=== PATIENT | male | born 1940 | race Caucasian/White ===

== ENCOUNTER 2017-06-15 15:01 | Inpatient (IN) | payer MEDICARE ==
[~2017-06-15] VITALS: Ht 188 cm; Wt 64.9 kg
[~2017-06-15 15:01] MED LIST: ACET-1600 PO; AMOX1TAB61 PO; CHOL10002 PO; DILT180C53 PO; FLUT1AER INH; GLYC1TAB PO; HYDR25TA11 PO; IPRA3AMP INH; IPRA4AER INH; MULT-516 PO; PIPE3.375 IVPB
[2017-06-15] MEDS ORDERED: SODIUM CHLORIDE 0.9% 1,000 ML IV ONE (15:21)
[2017-06-15] MEDS ORDERED: SODIUM CHLORIDE FLUSH 10ML SYR IVF ONE (15:30)
[2017-06-15] MEDS ORDERED: CEFTRIAXONE PMX 1GM/50ML 50 ML IVPB ONE (15:30)
[2017-06-15] MEDS ORDERED: SODIUM CHLORIDE 0.9% 1,000ML IVBOLUS ONE (15:30)
[2017-06-15] MEDS ORDERED: CEFTRIAXONE PMX 1GM/50ML 50 ML ONE (15:47)
[2017-06-15 15:58] LABS: BLOOD UREA NITROGEN 10 mg/dL (7-18)
[2017-06-15 16:03] LABS: ASPARTATE AMINO TRANSFERASE 17 U/L (15-37)
[2017-06-15 16:05] LABS: ABG COLLECTION SITE RIGHT RADIAL
[2017-06-15 16:05] LABS: IS PT STATUS REG ER OR PRE ER? YES
[2017-06-15 16:06] LABS: COLLATERAL CIRCULATION TESTING NORMAL
[2017-06-15 16:23] LABS: HEMATOCRIT 47.9 % (39.2-51.8); HEMOGLOBIN 16.3 g/dL (13.7-18.0); WHITE BLOOD COUNT 13.6 x10^3/uL (3.4-10)
[2017-06-15 16:24] LABS: DIFF TOTAL CELLS COUNTED 100 CELL DIFF
[2017-06-15 16:27] LABS: VERIFY COUNTS? YES
[2017-06-15] MEDS ORDERED: PROP10TA PO (16:27)
[2017-06-15] MEDS ORDERED: BUDE10.2 IH (16:27)
[2017-06-15] MEDS ORDERED: GABA100C PO (16:27)
[2017-06-15] MEDS ORDERED: DIAZ10TA PO (16:27)
[2017-06-15 16:28] LABS: ANISOCYTOSIS 1+
[2017-06-15] MEDS ORDERED: OMNIPAQUE 350 MG/ML, 100ML BOTTLE ONE (18:17)
[2017-06-15] MEDS ORDERED: ACETAMINOPHEN 325 MG TABLET PO PRN (19:00)
[2017-06-15] MEDS ORDERED: OXYcodone IR 5MG TABLET PO PRN (19:00)
[2017-06-15] MEDS ORDERED: ONDANSETRON 2MG/ML, 2ML IVPush PRN (19:00)
[2017-06-15] MEDS ORDERED: GUAIFENESIN/DM 200-20MG, 10ML UDC PO PRN (19:00)
[2017-06-15] MEDS ORDERED: POLYETHYLENE GLYCOL 17 GM PACKET PO PRN (19:00)
[2017-06-15] MEDS ORDERED: BISACODYL 10 MG SUPP PR PRN (19:00)
[2017-06-15] MEDS: CEFTRIAXONE PMX 1GM/50ML 50 ML IV SCH (19:19)
[2017-06-15] MEDS ORDERED: NICOTINE 14MG/24 HR PATCH.TD24 ONE (19:34)
[2017-06-15] MEDS ORDERED: HEPARIN 5,000 UNITS/ML, 1ML ONE (19:34)
[2017-06-15] MEDS: HEPARIN 5,000 UNITS/ML, 1ML SQ SCH (19:42)
[2017-06-15] MEDS: AZITHROMYCIN 500 MG in SODIUM CHLORIDE 0.9% 250 ML IV SCH (19:42)
[2017-06-15] MEDS: NICOTINE 14MG/24 HR PATCH.TD24 TD SCH (19:42)
[2017-06-15 20:00] LABS: CARCINOEMBRYONIC ANTIGEN 4.93 ng/mL (0.0-3.00)
[2017-06-15] MEDS: TEMPLATE NON-FORMULARY MED. (Budesonide/Formoterol Fumarate (Symbicort 160-4.5 Mcg Inhaler IH SCH (21:00)
[2017-06-15] MEDS: PROPRANOLOL 10 MG TABLET PO SCH (23:58)
[2017-06-15] MEDS: GABAPENTIN 100 MG CAPSULE PO SCH (23:58)
[2017-06-15] MEDS: SODIUM CHLORIDE 0.9% 1,000 ML IV SCH (23:59)
[2017-06-16 03:11] VITALS: BP 109/54
[2017-06-16] MEDS: HEPARIN 5,000 UNITS/ML, 1ML SQ SCH ×3 (03:32→19:12)
[2017-06-16 04:14] VITALS: BP 111/68
[2017-06-16] MEDS ORDERED: ALBUTEROL/IPRATROPIUM 2.5MG/0.5MG, 3 ML NPPB SCH (06:00)
[2017-06-16 06:03] LABS: HEMATOCRIT 36.9 % (39.2-51.8); HEMOGLOBIN 12.6 g/dL (13.7-18.0); WHITE BLOOD COUNT 9.9 x10^3/uL (3.4-10)
[2017-06-16 06:06] LABS: BLOOD UREA NITROGEN 9 mg/dL (7-18)
[2017-06-16 06:10] LABS: ASPARTATE AMINO TRANSFERASE 14 U/L (15-37)
[2017-06-16 06:23] LABS: DIFF TOTAL CELLS COUNTED 100 CELL DIFF
[2017-06-16 06:25] LABS: VERIFY COUNTS? YES
[2017-06-16 06:26] LABS: ANISOCYTOSIS 1+
[2017-06-16 06:27] LABS: LARGE PLATELETS 1+; POLYCHROMASIA 1+
[2017-06-16 08:15] VITALS: BP 99/45
[2017-06-16] MEDS ORDERED: DOCUSATE 100 MG CAPSULE PO PRN (08:30)
[2017-06-16] MEDS ORDERED: DIAZEPAM 5 MG TABLET ONE (08:41)
[2017-06-16] MEDS: SENNA/DOCUSATE TABLET PO SCH (08:58)
[2017-06-16] MEDS: GABAPENTIN 100 MG CAPSULE PO SCH ×3 (08:58→19:12)
[2017-06-16] MEDS: PROPRANOLOL 10 MG TABLET PO SCH ×2 (08:58→19:12)
[2017-06-16] MEDS: DILTIAZEM CD 180 MG CAP.ER.24H PO SCH (08:58)
[2017-06-16] MEDS: DIAZEPAM 10 MG TABLET PO SCH (08:59)
[2017-06-16] MEDS: TEMPLATE NON-FORMULARY MED. (Budesonide/Formoterol Fumarate (Symbicort 160-4.5 Mcg Inhaler IH SCH ×2 (09:00→19:26)
[2017-06-16 09:01] VITALS: BP 114/60
[2017-06-16] MEDS: SODIUM CHLORIDE 0.9% 1,000 ML IV SCH ×2 (09:10→17:58)
[2017-06-16] MEDS: POLYETHYLENE GLYCOL 17 GM PACKET PO SCH (09:11)
[2017-06-16 13:20] VITALS: BP 111/61
[2017-06-16] MEDS: CEFTRIAXONE PMX 1GM/50ML 50 ML IV SCH (17:42)
[2017-06-16] MEDS: AZITHROMYCIN 500 MG in SODIUM CHLORIDE 0.9% 250 ML IV SCH (19:12)
[2017-06-16] MEDS: NICOTINE 14MG/24 HR PATCH.TD24 TD SCH (19:14)
[2017-06-16 19:42] VITALS: BP 108/56
[2017-06-17 01:54] VITALS: BP 114/62
[2017-06-17] MEDS: HEPARIN 5,000 UNITS/ML, 1ML SQ SCH ×3 (04:01→21:28)
[2017-06-17] MEDS: SODIUM CHLORIDE 0.9% 1,000 ML IV SCH ×3 (04:01→23:13)
[2017-06-17 06:06] LABS: HEMATOCRIT 37.9 % (39.2-51.8); HEMOGLOBIN 12.8 g/dL (13.7-18.0); WHITE BLOOD COUNT 8.1 x10^3/uL (3.4-10)
[2017-06-17 06:22] LABS: DIFF TOTAL CELLS COUNTED 100 CELL DIFF
[2017-06-17 06:24] LABS: VERIFY COUNTS? YES
[2017-06-17 06:25] LABS: ANISOCYTOSIS 1+
[2017-06-17 06:28] LABS: ASPARTATE AMINO TRANSFERASE 14 U/L (15-37); BLOOD UREA NITROGEN 8 mg/dL (7-18)
[2017-06-17 07:05] VITALS: BP 111/58
[2017-06-17] MEDS: PROPRANOLOL 10 MG TABLET PO SCH ×2 (08:23→21:28)
[2017-06-17] MEDS: DILTIAZEM CD 180 MG CAP.ER.24H PO SCH (08:23)
[2017-06-17] MEDS: POLYETHYLENE GLYCOL 17 GM PACKET PO SCH (08:23)
[2017-06-17] MEDS: TEMPLATE NON-FORMULARY MED. (Budesonide/Formoterol Fumarate (Symbicort 160-4.5 Mcg Inhaler IH SCH ×2 (08:24→21:00)
[2017-06-17] MEDS: SENNA/DOCUSATE TABLET PO SCH (08:24)
[2017-06-17] MEDS: GABAPENTIN 100 MG CAPSULE PO SCH ×3 (08:24→21:28)
[2017-06-17] MEDS ORDERED: DIAZEPAM 5 MG TABLET ONE (08:26)
[2017-06-17] MEDS: DIAZEPAM 10 MG TABLET PO SCH (08:27)
[2017-06-17 12:40] VITALS: BP 103/57
[2017-06-17] MEDS: CEFTRIAXONE PMX 1GM/50ML 50 ML IV SCH (17:09)
[2017-06-17 19:26] VITALS: BP 120/64
[2017-06-17] MEDS: NICOTINE 14MG/24 HR PATCH.TD24 TD SCH (20:00)
[2017-06-17] MEDS: ALBUTEROL/IPRATROPIUM 2.5MG/0.5MG, 3 ML NPPB SCH (20:10)
[2017-06-17] MEDS: AZITHROMYCIN 500 MG in SODIUM CHLORIDE 0.9% 250 ML IV SCH (21:28)
[2017-06-18 00:35] VITALS: BP 117/59
[2017-06-18] MEDS: HEPARIN 5,000 UNITS/ML, 1ML SQ SCH ×2 (04:15→10:59)
[2017-06-18 06:15] LABS: HEMATOCRIT 37.5 % (39.2-51.8); HEMOGLOBIN 12.2 g/dL (13.7-18.0); WHITE BLOOD COUNT 5.9 x10^3/uL (3.4-10)
[2017-06-18 06:29] LABS: BLOOD UREA NITROGEN 7 mg/dL (7-18)
[2017-06-18 07:07] LABS: DIFF TOTAL CELLS COUNTED 100 CELL DIFF
[2017-06-18 07:18] LABS: ANISOCYTOSIS 1+; VERIFY COUNTS? YES
[2017-06-18 08:10] VITALS: BP 146/68
[2017-06-18] MEDS: ALBUTEROL/IPRATROPIUM 2.5MG/0.5MG, 3 ML NPPB SCH (08:55)
[2017-06-18] MEDS ORDERED: LEVOFLOXACIN 750 MG TABLET PO SCH (09:30)
[2017-06-18] MEDS ORDERED: DIAZEPAM 5 MG TABLET ONE (10:50)
[2017-06-18] MEDS: GABAPENTIN 100 MG CAPSULE PO SCH (10:57)
[2017-06-18] MEDS: POLYETHYLENE GLYCOL 17 GM PACKET PO SCH (10:57)
[2017-06-18] MEDS: SENNA/DOCUSATE TABLET PO SCH (10:57)
[2017-06-18] MEDS: DILTIAZEM CD 180 MG CAP.ER.24H PO SCH (10:58)
[2017-06-18] MEDS: DIAZEPAM 10 MG TABLET PO SCH (10:58)
[2017-06-18] MEDS: PROPRANOLOL 10 MG TABLET PO SCH (10:59)
[2017-06-18] MEDS: TEMPLATE NON-FORMULARY MED. (Budesonide/Formoterol Fumarate (Symbicort 160-4.5 Mcg Inhaler IH SCH (10:59)
[2017-06-18] MEDS: SODIUM CHLORIDE 0.9% 1,000 ML IV SCH (11:18)
[2017-06-18] MEDS ORDERED: LEVO750T26 PO (13:53)
[2017-06-18 14:30] VITALS: BP 134/65
== END 2017-06-18 15:30 | disposition home health service (06) | DRG 189 ==
LOC: ED 16:41 → EDIP 19:21 → 3NE 20:56
PROVIDERS: ADMIT Hospitalist; ATTEND Hospitalist
DX: J96.20 Acute and chronic respiratory failure, unspecified whether with hypoxia or hypercapnia (principal); J18.9 Pneumonia, unspecified organism; D69.6 Thrombocytopenia, unspecified; G62.9 Polyneuropathy, unspecified; E44.1 Mild protein-calorie malnutrition; J44.0 Chronic obstructive pulmonary disease with (acute) lower respiratory infection; Z86.74 Personal history of sudden cardiac arrest; Z99.81 Dependence on supplemental oxygen; Z68.1 Body mass index [BMI] 19.9 or less, adult; K59.00 Constipation, unspecified; K74.60 Unspecified cirrhosis of liver; I10 Essential (primary) hypertension; Z66 Do not resuscitate; F17.200 Nicotine dependence, unspecified, uncomplicated; D75.89 Other specified diseases of blood and blood-forming organs; Z80.6 Family history of leukemia; Z90.49 Acquired absence of other specified parts of digestive tract; Z95.0 Presence of cardiac pacemaker
CPT/HCPCS: 36415; 36600; 71260; 74177; 80048; 80053; 81003; 82040; 82378; 82607; 82746; 82803; 83605; 83880; 84145; 84484; 85025; 87040; 93005; 94640; 96365; J0456; J0696; J1644; J7620; Q9967; J7030; J7050

== ENCOUNTER 2018-01-20 12:54 | Inpatient (IN) | payer MEDICARE ==
[~2018-01-20] VITALS: Ht 188 cm; Wt 69.5 kg
[~2018-01-20 12:54] MED LIST changes: +BUDE10.2 IH; +DIAZ10TA PO; +GABA100C PO; +LEVO750T26 PO; +PROP10TA PO; +SODIUM CHLORIDE 0.9% 1,000 ML IV ONE
[2018-01-20] MEDS ORDERED: SODIUM CHLORIDE 0.9% 1,000ML IVBOLUS ONE (13:00)
[2018-01-20] MEDS ORDERED: SODIUM CHLORIDE FLUSH 10ML SYR IVF ONE (13:00)
[2018-01-20 13:18] LABS: MEAN CORPUSCULAR HEMOGLOBIN 36.1 pg (27.5-34.5); MEAN CORPUSCULAR HGB CONC 33.6 g/dL (33.2-36.2); MEAN CORPUSCULAR VOLUME 107.5 fL (81-97); MEAN PLATELET VOLUME 9.9 fL (7.4-10.4); PLATELET COUNT 112 x10^3/uL (130-400); RED CELL DISTRIBUTION WIDTH 16.3 % (9.4-14.8)
[2018-01-20 13:28] LABS: INTERNATIONAL NORMALIZED RATIO 1.22 (0.93-1.1); PROTHROMBIN TIME 12.6 Seconds (9.6-11.5)
[2018-01-20 13:31] LABS: ALANINE AMINOTRANSFERASE 40 U/L (12-78); ALBUMIN 2.7 g/dL (3.4-5.0); ANION GAP 7 mmol/L (5-15); CALCIUM 8.8 mg/dL (8.5-10.1); CHLORIDE 98 mmol/L (98-107)
[2018-01-20 13:36] LABS: ALKALINE PHOSPHATASE 166 U/L (45-117); CREATINE KINASE, TOTAL 130 U/L (39-308); CREATININE 1.66 mg/dL (0.7-1.3); TOTAL PROTEIN 7.2 g/dL (6.4-8.2); TROPONIN I < 0.015 ng/mL (0.000-0.045)
[2018-01-20 13:37] LABS: MD YES
[2018-01-20 13:41] LABS: LYMPH#(MANUAL) 0.64 x10^3/uL (1-3.4); LYMPHS% (MANUAL) 2 % (22-44); MYELOCYTES# (MANUAL) 0.32 x10^3/uL (0-0); MYELOCYTES% (MANUAL) 1 % (0-0)
[2018-01-20 13:50] LABS: BAND#(MANUAL) 5.47 x10^3/uL; BANDS%(MANUAL) 17 % (0-7); METAMYELOCYTES# (MANUAL) 1.29 x10^3/uL (0-0); METAMYELOCYTES% (MANUAL) 4 % (0-1)
[2018-01-20 13:51] LABS: MONOS#(MANUAL) 4.19 x10^3/uL (0.3-2.7); MONOS% (MANUAL) 13 % (2-9); SEG#(MANUAL) 20.29 x10^3/uL (1.8-6.8); SEGS% (MANUAL) 63 % (42-75)
[2018-01-20 13:52] LABS: <PLATELET ESTIMATE> DECREASED; ANISOCYTOSIS 1+; LARGE PLATELETS 1+
[2018-01-20] MEDS ORDERED: PIPERACILLIN/TAZO/PMX 3.375GM 50 ML IVPB ONE (14:00)
[2018-01-20] MEDS ORDERED: VANCOMYCIN 1,200 MG in SODIUM CHLORIDE 0.9% 250 ML IV ONE (14:00)
[2018-01-20] MEDS ORDERED: VANCOMYCIN PER PHARMACY MC ONE (14:00)
[2018-01-20] MEDS ORDERED: PIPERACILLIN/TAZO/PMX 3.375GM 50 ML ONE (14:05)
[2018-01-20] MEDS ORDERED: FLUO20CA8 PO (14:29)
[2018-01-20] MEDS ORDERED: DIAZ2TAB3 PO (14:29)
[2018-01-20] MEDS ORDERED: HYDR10TA4 PO (14:29)
[2018-01-20] MEDS: SODIUM CHLORIDE 0.9% 1,000 ML IV SCH (14:51)
[2018-01-20] MEDS ORDERED: SODIUM CHLORIDE FLUSH 10ML SYR IVF PRN (15:00)
[2018-01-20] MEDS ORDERED: ACETAMINOPHEN 325 MG TABLET PO PRN (15:00)
[2018-01-20] MEDS ORDERED: VANCOMYCIN PER PHARMACY MC PRN (15:00)
[2018-01-20] MEDS ORDERED: PIPERACILLIN/TAZO 2.25 GM in SODIUM CHLORIDE 0.9% 50 ML IV SCH (15:00)
[2018-01-20] MEDS ORDERED: hydrALAzine 20 MG/ML, 1ML IVPush PRN (15:00)
[2018-01-20] MEDS ORDERED: HYDROXYZINE HCL 10 MG PO SCH (15:00)
[2018-01-20] MEDS ORDERED: ALBUTEROL/IPRATROPIUM 2.5MG/0.5MG, 3 ML ONE (15:59)
[2018-01-20] MEDS: GABAPENTIN 100 MG CAPSULE PO SCH ×2 (16:00→19:40)
[2018-01-20] MEDS: NICOTINE 14MG/24 HR PATCH.TD24 TD SCH (16:00)
[2018-01-20] MEDS: ALBUTEROL/IPRATROPIUM 2.5MG/0.5MG, 3 ML NPPB SCH ×2 (16:23→19:28)
[2018-01-20] MEDS ORDERED: ALBUTEROL/IPRATROPIUM 2.5MG/0.5MG, 3 ML NPPB PRN (16:30)
[2018-01-20] MEDS ORDERED: PHARMACOKINETIC MONITORING MC PRN (16:30)
[2018-01-20] MEDS ORDERED: PHARMACOKINETIC CONSULTATION MC ONE (16:30)
[2018-01-20 16:51] VITALS: BP 111/53
[2018-01-20] MEDS ORDERED: VANCOMYCIN 1,200 MG in SODIUM CHLORIDE 0.9% 250 ML IV SCH (17:00)
[2018-01-20] MEDS ORDERED: LIDOCAINE-MPF 1%, 2ML ONE ×3 (18:40→18:42)
[2018-01-20] MEDS: hydrOXyzine 10MG TABLET PO SCH (19:40)
[2018-01-20] MEDS: PIPERACILLIN/TAZO 2.25 GM in SODIUM CHLORIDE 0.9% 50 ML IV SCH (20:22)
[2018-01-20 22:00] VITALS: BP 102/65
[2018-01-20] MEDS: Budesonide/Formoterol Fumarate (Symbicort 160-4.5 Mcg Inhaler IH SCH (22:00)
[2018-01-21] MEDS: MORPHINE SULFATE 4 MG/ML, 1ML IVPush PRN ×4 (00:06→22:40)
[2018-01-21] MEDS: SODIUM CHLORIDE 0.9% 1,000 ML IV SCH ×2 (00:06→17:33)
[2018-01-21 01:39] VITALS: BP 140/67
[2018-01-21] MEDS: PIPERACILLIN/TAZO 2.25 GM in SODIUM CHLORIDE 0.9% 50 ML IV SCH ×4 (04:12→23:50)
[2018-01-21 04:51] LABS: MICROSCOPIC INDICATED
[2018-01-21] MEDS: NICOTINE 14MG/24 HR PATCH.TD24 TD SCH (04:53)
[2018-01-21 05:00] LABS: AMPHETAMINE SCREEN, URINE Negative (Negative); BARBITURATE SCREEN, URINE Negative (Negative); BENZODIAZEPINE SCREEN, URINE Positive (Negative); CANNABINOID SCREEN, URINE Negative (Negative); COCAINE SCREEN, URINE Negative (Negative); CULTURE INDICATED? NO; METHADONE SCREEN, URINE Negative (Negative); OPIATE SCREEN, URINE Negative (Negative)
[2018-01-21 05:17] LABS: CHLORIDE 103 mmol/L (98-107)
[2018-01-21 05:25] LABS: ALANINE AMINOTRANSFERASE 31 U/L (12-78); ALBUMIN 2.3 g/dL (3.4-5.0); ALKALINE PHOSPHATASE 138 U/L (45-117); ANION GAP 5 mmol/L (5-15); BILIRUBIN,TOTAL 1.1 mg/dL (0.2-1.0); CALCIUM 8.2 mg/dL (8.5-10.1); CREATININE 0.94 mg/dL (0.7-1.3); TOTAL PROTEIN 6.1 g/dL (6.4-8.2)
[2018-01-21 05:34] LABS: MEAN CORPUSCULAR HEMOGLOBIN 36.6 pg (27.5-34.5); MEAN CORPUSCULAR HGB CONC 33.9 g/dL (33.2-36.2); RED BLOOD COUNT 2.91 x10^6/uL (4.38-5.82); RED CELL DISTRIBUTION WIDTH 16.4 % (9.4-14.8)
[2018-01-21 05:57] LABS: MD YES; MEAN PLATELET VOLUME 10.5 fL (7.4-10.4); PLATELET COUNT 85 x10^3/uL (130-400)
[2018-01-21 06:00] LABS: BAND#(MANUAL) 0.91 x10^3/uL; BANDS%(MANUAL) 5 % (0-7); EOS#(MANUAL) 0.18 x10^3/uL (0.0-0.4); EOS% (MANUAL) 1 % (1-7)
[2018-01-21] MEDS ORDERED: POTASSIUM CHLORIDE 20 MEQ in SODIUM CHLORIDE 0.9% 250 ML IV ONE (06:00)
[2018-01-21] MEDS ORDERED: MAGNESIUM SULFATE PMX 2GM/50ML 50 ML IV ONE (06:00)
[2018-01-21 06:03] LABS: LYMPH#(MANUAL) 1.64 x10^3/uL (1-3.4); LYMPHS% (MANUAL) 9 % (22-44); MONOS#(MANUAL) 3.46 x10^3/uL (0.3-2.7); MONOS% (MANUAL) 19 % (2-9); SEG#(MANUAL) 12.01 x10^3/uL (1.8-6.8); SEGS% (MANUAL) 66 % (42-75)
[2018-01-21 06:05] LABS: <PLATELET ESTIMATE> DECREASED; ANISOCYTOSIS 1+; LARGE PLATELETS 1+
[2018-01-21 06:30] VITALS: BP 102/48
[2018-01-21] MEDS: ALBUTEROL/IPRATROPIUM 2.5MG/0.5MG, 3 ML NPPB SCH ×4 (08:20→19:17)
[2018-01-21] MEDS: FLUOXETINE HCL 20 MG CAPSULE PO SCH (08:38)
[2018-01-21] MEDS: GABAPENTIN 100 MG CAPSULE PO SCH ×3 (08:38→20:52)
[2018-01-21] MEDS: Budesonide/Formoterol Fumarate (Symbicort 160-4.5 Mcg Inhaler IH SCH ×3 (08:43→21:00)
[2018-01-21] MEDS ORDERED: TEMPLATE NON-FORMULARY MED. (Ipratropium/Albuterol Sulfate (Combivent Respimat Inhal Spray INH SCH (09:00)
[2018-01-21] MEDS ORDERED: TRIAMCINOLONE OINT 0.1%, 15GM TP PRN ×2 (09:00→12:38)
[2018-01-21 11:05] VITALS: BP 153/75
[2018-01-21 14:00] VITALS: BP 105/52
[2018-01-21] MEDS: hydrOXyzine 10MG TABLET PO SCH (20:52)
[2018-01-21 21:00] VITALS: BP 126/72
[2018-01-21] MEDS: VANCOMYCIN 1,200 MG in SODIUM CHLORIDE 0.9% 250 ML IV SCH (21:04)
[2018-01-22 04:00] VITALS: BP 108/59
[2018-01-22 05:39] LABS: INTERNATIONAL NORMALIZED RATIO 1.3 (0.93-1.1); PROTHROMBIN TIME 13.5 Seconds (9.6-11.5)
[2018-01-22 05:44] LABS: ALBUMIN 2.1 g/dL (3.4-5.0); CALCIUM 8.2 mg/dL (8.5-10.1); CHLORIDE 105 mmol/L (98-107); CREATININE 0.81 mg/dL (0.7-1.3)
[2018-01-22 05:47] LABS: MEAN CORPUSCULAR HEMOGLOBIN 36.6 pg (27.5-34.5); MEAN CORPUSCULAR HGB CONC 34.1 g/dL (33.2-36.2); MEAN CORPUSCULAR VOLUME 107.3 fL (81-97); MEAN PLATELET VOLUME 10.6 fL (7.4-10.4); PLATELET COUNT 86 x10^3/uL (130-400); RED BLOOD COUNT 3.04 x10^6/uL (4.38-5.82)
[2018-01-22 05:55] LABS: ALANINE AMINOTRANSFERASE 28 U/L (12-78); ALKALINE PHOSPHATASE 141 U/L (45-117); ANION GAP 6 mmol/L (5-15); BILIRUBIN,TOTAL 1.5 mg/dL (0.2-1.0); TOTAL PROTEIN 6.1 g/dL (6.4-8.2)
[2018-01-22 05:58] LABS: MD YES
[2018-01-22 06:02] LABS: BAND#(MANUAL) 0.62 x10^3/uL; BANDS%(MANUAL) 2 % (0-7); LYMPH#(MANUAL) 0.62 x10^3/uL (1-3.4); LYMPHS% (MANUAL) 2 % (22-44); MONOS#(MANUAL) 5.27 x10^3/uL (0.3-2.7); MONOS% (MANUAL) 17 % (2-9); SEG#(MANUAL) 24.49 x10^3/uL (1.8-6.8); SEGS% (MANUAL) 79 % (42-75)
[2018-01-22 06:03] LABS: ANISOCYTOSIS 1+
[2018-01-22 06:04] LABS: <PLATELET ESTIMATE> DECREASED; LARGE PLATELETS 1+
[2018-01-22] MEDS: PIPERACILLIN/TAZO 2.25 GM in SODIUM CHLORIDE 0.9% 50 ML IV SCH (06:09)
[2018-01-22] MEDS: SODIUM CHLORIDE 0.9% 1,000 ML IV SCH ×2 (06:12→17:31)
[2018-01-22 06:30] VITALS: BP 114/49
[2018-01-22 07:25] VITALS: BP 114/80
[2018-01-22] MEDS ORDERED: POTASSIUM CHLORIDE 40 MEQ in SODIUM CHLORIDE 0.9% 500 ML IV ONE (07:30)
[2018-01-22] MEDS ORDERED: MAGNESIUM SULFATE PMX 2GM/50ML 50 ML IV ONE (07:30)
[2018-01-22] MEDS: ALBUTEROL/IPRATROPIUM 2.5MG/0.5MG, 3 ML NPPB SCH ×4 (07:46→20:12)
[2018-01-22] MEDS: Budesonide/Formoterol Fumarate (Symbicort 160-4.5 Mcg Inhaler IH SCH ×2 (09:00→21:14)
[2018-01-22] MEDS: GABAPENTIN 100 MG CAPSULE PO SCH ×3 (09:00→21:07)
[2018-01-22] MEDS: FLUOXETINE HCL 20 MG CAPSULE PO SCH (09:00)
[2018-01-22] MEDS ORDERED: OMNIPAQUE 350 MG/ML, 100ML BOTTLE ONE (12:49)
[2018-01-22 13:21] VITALS: BP 114/67
[2018-01-22] MEDS ORDERED: MIDAZOLAM 1 MG/ML, 2ML ONE (13:38)
[2018-01-22] MEDS ORDERED: FENTANYL PF 250 MCG/5ML ONE (13:38)
[2018-01-22] MEDS ORDERED: NEOSPORIN OINT, 15GM ONE (13:40)
[2018-01-22] MEDS ORDERED: GLYCOPYRROLATE 0.2MG/1ML, 5ML ONE (14:05)
[2018-01-22] MEDS ORDERED: PROPOFOL 10 MG/ML, 20ML ONE (14:05)
[2018-01-22] MEDS ORDERED: ROCURONIUM 10 MG/ML,10ML ONE (14:05)
[2018-01-22] MEDS ORDERED: NEOSTIGMINE 1 MG/ML, 10ML ONE (14:05)
[2018-01-22] MEDS ORDERED: PHENYLEPHRINE 10 MG/ML ONE (14:05)
[2018-01-22] MEDS ORDERED: CEFAZOLIN 1,000 MG ONE (14:05)
[2018-01-22] MEDS ORDERED: HALOPERIDOL 5 MG/ML IV PRN (15:00)
[2018-01-22] MEDS ORDERED: FENTANYL PF 100 MCG/2ML IV PRN (15:00)
[2018-01-22] MEDS ORDERED: LORazepam 2 MG/ML, 1ML IVPush PRN (15:00)
[2018-01-22] MEDS ORDERED: ALBUTEROL/IPRATROPIUM 2.5MG/0.5MG, 3 ML NPPB PRN (15:00)
[2018-01-22] MEDS ORDERED: MEPERIDINE/PF 25MG/0.5ML IVPush PRN (15:00)
[2018-01-22] MEDS ORDERED: HYDROmorphone 1 MG/ML, 1ML IV PRN ×2 (15:00→18:30)
[2018-01-22] MEDS ORDERED: MORPHINE SULFATE 4 MG/ML, 1ML IVPush PRN (15:00)
[2018-01-22] MEDS ORDERED: PROMETHAZINE 25 MG/ML, 1ML IV PRN (15:00)
[2018-01-22] MEDS ORDERED: OXYcodone 5 MG/5 ML ORAL.SOL UDC PO PRN (15:00)
[2018-01-22] MEDS: PIPERACILLIN/TAZO/PMX 2.25GM 50 ML IVPB SCH ×2 (17:45→22:41)
[2018-01-22] MEDS: NICOTINE 14MG/24 HR PATCH.TD24 TD SCH (17:49)
[2018-01-22] MEDS ORDERED: HYDROcodone/APAP 7.5-325MG/15ML UDC PO PRN (18:30)
[2018-01-22] MEDS ORDERED: OXYcodone/APAP 5/325MG TABLET PO PRN (18:30)
[2018-01-22] MEDS ORDERED: ONDANSETRON 2MG/ML, 2ML IV PRN (18:30)
[2018-01-22 19:05] VITALS: BP 80/40
[2018-01-22 19:45] VITALS: BP 80/40
[2018-01-22] MEDS: SODIUM CHLORIDE FLUSH 10ML SYR IVF SCH (21:00)
[2018-01-22] MEDS: hydrOXyzine 10MG TABLET PO SCH (21:00)
[2018-01-22] MEDS: DOCUSATE 100 MG CAPSULE PO SCH (21:00)
[2018-01-22] MEDS: VANCOMYCIN 1,200 MG in SODIUM CHLORIDE 0.9% 250 ML IV SCH (21:12)
[2018-01-22] MEDS ORDERED: SODIUM CHLORIDE 0.9%, 500ML IVBOLUS ONE (21:30)
[2018-01-22] MEDS: CEFAZOLIN PMX 1GM/50ML 50 ML IVPB SCH (22:44)
[2018-01-22] MEDS: KETOROLAC 30 MG/1 ML IV SCH (23:25)
[2018-01-23] VITALS (11 sets, daily range): BP systolic 82–125; BP diastolic 47–79
[2018-01-23] MEDS: ENOXAPARIN 40 MG/0.4 ML SQ SCH (00:17)
[2018-01-23 05:33] LABS: MEAN CORPUSCULAR HEMOGLOBIN 35.8 pg (27.5-34.5); MEAN CORPUSCULAR HGB CONC 33.3 g/dL (33.2-36.2); MEAN CORPUSCULAR VOLUME 107.5 fL (81-97); RED BLOOD COUNT 2.71 x10^6/uL (4.38-5.82); RED CELL DISTRIBUTION WIDTH 17.3 % (9.4-14.8)
[2018-01-23 05:41] LABS: ALBUMIN 1.9 g/dL (3.4-5.0); ANION GAP 5 mmol/L (5-15); CHLORIDE 110 mmol/L (98-107)
[2018-01-23 05:44] LABS: ALANINE AMINOTRANSFERASE 23 U/L (12-78); ALKALINE PHOSPHATASE 117 U/L (45-117); CREATININE 0.71 mg/dL (0.7-1.3); TOTAL PROTEIN 5.8 g/dL (6.4-8.2)
[2018-01-23] MEDS: SODIUM CHLORIDE 0.9% 1,000 ML IV SCH ×2 (06:01→18:00)
[2018-01-23] MEDS: CEFAZOLIN PMX 1GM/50ML 50 ML IVPB SCH (06:01)
[2018-01-23 06:15] LABS: MD YES; MEAN PLATELET VOLUME 10.9 fL (7.4-10.4); PLATELET COUNT 78 x10^3/uL (130-400)
[2018-01-23 06:18] LABS: BAND#(MANUAL) 3.31 x10^3/uL; BANDS%(MANUAL) 12 % (0-7); LYMPH#(MANUAL) 1.93 x10^3/uL (1-3.4); LYMPHS% (MANUAL) 7 % (22-44); MONOS#(MANUAL) 5.24 x10^3/uL (0.3-2.7); MONOS% (MANUAL) 19 % (2-9); SEG#(MANUAL) 17.11 x10^3/uL (1.8-6.8); SEGS% (MANUAL) 62 % (42-75)
[2018-01-23 06:19] LABS: <PLATELET ESTIMATE> DECREASED; ANISOCYTOSIS 1+; LARGE PLATELETS 1+
[2018-01-23] MEDS: PIPERACILLIN/TAZO/PMX 2.25GM 50 ML IVPB SCH (06:21)
[2018-01-23] MEDS ORDERED: SODIUM CHLORIDE 0.9%, 500ML IVBOLUS ONE ×3 (06:30→14:30)
[2018-01-23] MEDS: ALBUTEROL/IPRATROPIUM 2.5MG/0.5MG, 3 ML NPPB SCH ×4 (07:28→18:49)
[2018-01-23] MEDS ORDERED: MAGNESIUM SULFATE PMX 2GM/50ML 50 ML IV ONE (07:30)
[2018-01-23] MEDS: SODIUM CHLORIDE FLUSH 10ML SYR IVF SCH ×2 (09:00→21:00)
[2018-01-23] MEDS: DILTIAZEM 30 MG TABLET PO SCH ×2 (09:00→17:34)
[2018-01-23] MEDS: GABAPENTIN 100 MG CAPSULE PO SCH ×3 (09:00→20:28)
[2018-01-23] MEDS ORDERED: DILTIAZEM CD 180 MG CAP.ER.24H PO SCH (09:00)
[2018-01-23] MEDS: Budesonide/Formoterol Fumarate (Symbicort 160-4.5 Mcg Inhaler IH SCH ×2 (09:00→20:29)
[2018-01-23] MEDS ORDERED: METOPROLOL 1 MG/ML, 5ML IV PRN ×2 (09:00→13:30)
[2018-01-23] MEDS: FLUOXETINE HCL 20 MG CAPSULE PO SCH (09:00)
[2018-01-23] MEDS: DOCUSATE 100 MG CAPSULE PO SCH ×2 (09:00→20:29)
[2018-01-23] MEDS: KETOROLAC 30 MG/1 ML IV SCH ×2 (09:14→17:34)
[2018-01-23] MEDS: PIPERACILLIN/TAZO/PMX 3.375GM 50 ML IV SCH ×2 (12:00→17:47)
[2018-01-23] MEDS ORDERED: SODIUM CHLORIDE 0.9% 1,000 ML IV SCH ×2 (14:51)
[2018-01-23] MEDS ORDERED: DIGOXIN 0.25 MG/ML, 2ML IVPush ONE (15:00)
[2018-01-23] MEDS: ALBUMIN HUMAN 25% 100 ML IV SCH ×2 (15:11→23:13)
[2018-01-23] MEDS: DOXYCYCLINE 100 MG in DEXTROSE 5% 250 ML IV SCH (15:11)
[2018-01-23] MEDS: NICOTINE 14MG/24 HR PATCH.TD24 TD SCH (16:00)
[2018-01-23] MEDS ORDERED: KETOROLAC 30 MG/1 ML ONE (17:30)
[2018-01-23] MEDS: HYDROCORTISONE 100 MG INJ. IV SCH (17:33)
[2018-01-23] MEDS ORDERED: D5%-0.9% NACL 1,000 ML IV SCH (18:00)
[2018-01-23] MEDS: hydrOXyzine 10MG TABLET PO SCH (20:28)
[2018-01-23] MEDS: VANCOMYCIN 1,200 MG in SODIUM CHLORIDE 0.9% 250 ML IV SCH (21:20)
[2018-01-23] MEDS: DOCUSATE 50 MG/5 ML, 10ML UDC PO SCH (21:44)
[2018-01-24] VITALS (7 sets, daily range): BP systolic 114–136; BP diastolic 53–69
[2018-01-24] MEDS: HYDROCORTISONE 100 MG INJ. IV SCH ×2 (00:49→10:05)
[2018-01-24] MEDS: SODIUM CHLORIDE 0.9% 1,000 ML IV SCH (00:49)
[2018-01-24] MEDS: DILTIAZEM 30 MG TABLET PO SCH ×3 (00:54→16:42)
[2018-01-24] MEDS: PIPERACILLIN/TAZO/PMX 3.375GM 50 ML IV SCH ×4 (00:57→18:03)
[2018-01-24] MEDS: DOXYCYCLINE 100 MG in DEXTROSE 5% 250 ML IV SCH ×2 (03:02→20:34)
[2018-01-24] MEDS: ENOXAPARIN 40 MG/0.4 ML SQ SCH (05:14)
[2018-01-24 05:47] LABS: ALBUMIN 2.5 g/dL (3.4-5.0); ANION GAP 4 mmol/L (5-15); CALCIUM 8.3 mg/dL (8.5-10.1); CHLORIDE 114 mmol/L (98-107); CREATININE 0.73 mg/dL (0.7-1.3)
[2018-01-24 05:54] LABS: MEAN CORPUSCULAR HEMOGLOBIN 36.2 pg (27.5-34.5); MEAN CORPUSCULAR HGB CONC 33.6 g/dL (33.2-36.2); MEAN CORPUSCULAR VOLUME 107.7 fL (81-97); PLATELET COUNT 64 x10^3/uL (130-400); RED BLOOD COUNT 2.01 x10^6/uL (4.38-5.82); RED CELL DISTRIBUTION WIDTH 17.1 % (9.4-14.8)
[2018-01-24 06:22] LABS: MD YES
[2018-01-24 06:28] LABS: BAND#(MANUAL) 2.25 x10^3/uL; BANDS%(MANUAL) 14 % (0-7); LYMPH#(MANUAL) 0.48 x10^3/uL (1-3.4); LYMPHS% (MANUAL) 3 % (22-44); METAMYELOCYTES# (MANUAL) 0.16 x10^3/uL (0-0); METAMYELOCYTES% (MANUAL) 1 % (0-1); MONOS#(MANUAL) 0.64 x10^3/uL (0.3-2.7); MONOS% (MANUAL) 4 % (2-9); MYELOCYTES# (MANUAL) 0.48 x10^3/uL (0-0); MYELOCYTES% (MANUAL) 3 % (0-0); SEG#(MANUAL) 12.08 x10^3/uL (1.8-6.8); SEGS% (MANUAL) 75 % (42-75)
[2018-01-24 06:29] LABS: <PLATELET ESTIMATE> DECREASED; ANISOCYTOSIS 1+
[2018-01-24 06:30] LABS: LARGE PLATELETS 1+
[2018-01-24] MEDS: ALBUTEROL/IPRATROPIUM 2.5MG/0.5MG, 3 ML NPPB SCH ×4 (07:00→19:49)
[2018-01-24] MEDS: SODIUM CHLORIDE FLUSH 10ML SYR IVF SCH ×2 (09:00→20:35)
[2018-01-24] MEDS: Budesonide/Formoterol Fumarate (Symbicort 160-4.5 Mcg Inhaler IH SCH ×2 (09:00→20:39)
[2018-01-24] MEDS ORDERED: DIGOXIN 0.25 MG/ML, 2ML IVPush SCH (09:00)
[2018-01-24] MEDS: ALBUMIN HUMAN 25% 100 ML IV SCH (10:05)
[2018-01-24] MEDS: DOCUSATE 50 MG/5 ML, 10ML UDC PO SCH ×2 (10:05→20:35)
[2018-01-24] MEDS: GABAPENTIN 100 MG CAPSULE PO SCH ×3 (10:05→20:35)
[2018-01-24] MEDS: FLUOXETINE HCL 20 MG CAPSULE PO SCH (10:05)
[2018-01-24] MEDS ORDERED: SODIUM CHLORIDE 0.9% 1,000 ML IV SCH ×2 (13:30→18:00)
[2018-01-24] MEDS ORDERED: FUROSEMIDE 20 MG/2 ML IV ONE (14:00)
[2018-01-24] MEDS: NICOTINE 14MG/24 HR PATCH.TD24 TD SCH (14:03)
[2018-01-24] MEDS: VANCOMYCIN 1,200 MG in SODIUM CHLORIDE 0.9% 250 ML IV SCH (20:34)
[2018-01-24] MEDS: hydrOXyzine 10MG TABLET PO SCH (20:35)
[2018-01-25] VITALS (10 sets, daily range): BP systolic 128–155; BP diastolic 46–71
[2018-01-25] MEDS: PIPERACILLIN/TAZO/PMX 3.375GM 50 ML IV SCH ×4 (00:28→19:29)
[2018-01-25] MEDS: DILTIAZEM 30 MG TABLET PO SCH ×3 (00:38→17:09)
[2018-01-25 05:26] LABS: MEAN CORPUSCULAR HEMOGLOBIN 36.5 pg (27.5-34.5); MEAN CORPUSCULAR HGB CONC 33.8 g/dL (33.2-36.2); MEAN CORPUSCULAR VOLUME 108.2 fL (81-97); RED BLOOD COUNT 1.87 x10^6/uL (4.38-5.82); RED CELL DISTRIBUTION WIDTH 16.5 % (9.4-14.8)
[2018-01-25 05:37] LABS: ALANINE AMINOTRANSFERASE 19 U/L (12-78); ALBUMIN 2.5 g/dL (3.4-5.0); ANION GAP 4 mmol/L (5-15); CALCIUM 8.3 mg/dL (8.5-10.1); CHLORIDE 114 mmol/L (98-107); CREATININE 0.64 mg/dL (0.7-1.3)
[2018-01-25 05:42] LABS: ALKALINE PHOSPHATASE 87 U/L (45-117); BILIRUBIN,TOTAL 1.3 mg/dL (0.2-1.0); TOTAL PROTEIN 5.6 g/dL (6.4-8.2)
[2018-01-25 05:54] LABS: MD YES
[2018-01-25 05:57] LABS: MEAN PLATELET VOLUME 10.6 fL (7.4-10.4); PLATELET COUNT 58 x10^3/uL (130-400)
[2018-01-25 06:00] LABS: <PLATELET ESTIMATE> DECREASED; ANISOCYTOSIS 1+; BAND#(MANUAL) 0.84 x10^3/uL; BANDS%(MANUAL) 8 % (0-7); LYMPH#(MANUAL) 0.84 x10^3/uL (1-3.4); LYMPHS% (MANUAL) 8 % (22-44); METAMYELOCYTES# (MANUAL) 0.42 x10^3/uL (0-0); METAMYELOCYTES% (MANUAL) 4 % (0-1); MONOS#(MANUAL) 0.42 x10^3/uL (0.3-2.7); MONOS% (MANUAL) 4 % (2-9); SEG#(MANUAL) 7.98 x10^3/uL (1.8-6.8); SEGS% (MANUAL) 76 % (42-75)
[2018-01-25 06:01] LABS: LARGE PLATELETS 1+
[2018-01-25 06:02] LABS: BASOPHILLIC STIPPLING 1+
[2018-01-25] MEDS: ALBUTEROL/IPRATROPIUM 2.5MG/0.5MG, 3 ML NPPB SCH ×4 (07:28→20:44)
[2018-01-25] MEDS: GABAPENTIN 100 MG CAPSULE PO SCH ×3 (09:00→20:25)
[2018-01-25] MEDS: Budesonide/Formoterol Fumarate (Symbicort 160-4.5 Mcg Inhaler IH SCH ×2 (09:00→20:24)
[2018-01-25] MEDS: SODIUM CHLORIDE FLUSH 10ML SYR IVF SCH ×2 (10:50→20:26)
[2018-01-25] MEDS: DOXYCYCLINE 100 MG in DEXTROSE 5% 250 ML IV SCH ×2 (10:50→20:49)
[2018-01-25] MEDS: FLUOXETINE HCL 20 MG CAPSULE PO SCH (10:51)
[2018-01-25] MEDS: DOCUSATE 50 MG/5 ML, 10ML UDC PO SCH ×2 (10:51→20:25)
[2018-01-25] MEDS: NICOTINE 14MG/24 HR PATCH.TD24 TD SCH (17:08)
[2018-01-25] MEDS: hydrOXyzine 10MG TABLET PO SCH (20:25)
[2018-01-25] MEDS: POTASSIUM CHLORIDE 10% 40 MEQ/30 ML UDC PO SCH (20:26)
[2018-01-25] MEDS: VANCOMYCIN 1,200 MG in SODIUM CHLORIDE 0.9% 250 ML IV SCH (20:49)
[2018-01-26 00:20] VITALS: BP 106/65
[2018-01-26] MEDS: PIPERACILLIN/TAZO/PMX 3.375GM 50 ML IV SCH ×4 (00:21→18:13)
[2018-01-26] MEDS: DILTIAZEM 30 MG TABLET PO SCH ×3 (00:21→17:08)
[2018-01-26 05:17] LABS: CHLORIDE 113 mmol/L (98-107)
[2018-01-26 05:22] LABS: ANION GAP 5 mmol/L (5-15); CALCIUM 8.4 mg/dL (8.5-10.1); CREATININE 0.65 mg/dL (0.7-1.3)
[2018-01-26 06:04] LABS: MD YES
[2018-01-26 06:08] LABS: MEAN CORPUSCULAR HEMOGLOBIN 35.8 pg (27.5-34.5); MEAN CORPUSCULAR HGB CONC 34.4 g/dL (33.2-36.2); MEAN CORPUSCULAR VOLUME 104.4 fL (81-97); MEAN PLATELET VOLUME 11.2 fL (7.4-10.4); PLATELET COUNT 73 x10^3/uL (130-400); RED BLOOD COUNT 2.32 x10^6/uL (4.38-5.82); RED CELL DISTRIBUTION WIDTH 18.9 % (9.4-14.8)
[2018-01-26 06:16] LABS: ANISOCYTOSIS 1+; BAND#(MANUAL) 0.11 x10^3/uL; BANDS%(MANUAL) 1 % (0-7); EOS#(MANUAL) 0.21 x10^3/uL (0.0-0.4); EOS% (MANUAL) 2 % (1-7); LYMPH#(MANUAL) 2.52 x10^3/uL (1-3.4); LYMPHS% (MANUAL) 24 % (22-44); METAMYELOCYTES# (MANUAL) 0.63 x10^3/uL (0-0); METAMYELOCYTES% (MANUAL) 6 % (0-1); MONOS#(MANUAL) 0.32 x10^3/uL (0.3-2.7); MONOS% (MANUAL) 3 % (2-9); MYELOCYTES# (MANUAL) 0.11 x10^3/uL (0-0); MYELOCYTES% (MANUAL) 1 % (0-0); SEG#(MANUAL) 6.62 x10^3/uL (1.8-6.8); SEGS% (MANUAL) 63 % (42-75)
[2018-01-26 06:17] LABS: <PLATELET ESTIMATE> DECREASED; LARGE PLATELETS 1+
[2018-01-26 06:18] LABS: BASOPHILLIC STIPPLING 1+
[2018-01-26] MEDS: ALBUTEROL/IPRATROPIUM 2.5MG/0.5MG, 3 ML NPPB SCH ×4 (07:00→20:34)
[2018-01-26 08:00] VITALS: BP 159/72
[2018-01-26 08:15] LABS: IRON LEVEL 113 mcg/dL (65-175)
[2018-01-26 08:16] LABS: % IRON SATURATION 86 % (20-55); TOTAL IRON BINDING CAPACITY 132 mcg/dL (250-450)
[2018-01-26] MEDS: Budesonide/Formoterol Fumarate (Symbicort 160-4.5 Mcg Inhaler IH SCH ×2 (09:00→20:28)
[2018-01-26] MEDS: DOXYCYCLINE 100 MG in DEXTROSE 5% 250 ML IV SCH ×2 (09:37→20:27)
[2018-01-26] MEDS: GABAPENTIN 100 MG CAPSULE PO SCH ×3 (09:37→20:28)
[2018-01-26] MEDS: FLUOXETINE HCL 20 MG CAPSULE PO SCH (09:37)
[2018-01-26] MEDS: SODIUM CHLORIDE FLUSH 10ML SYR IVF SCH ×2 (09:37→20:27)
[2018-01-26] MEDS: DOCUSATE 50 MG/5 ML, 10ML UDC PO SCH ×2 (09:37→20:27)
[2018-01-26] MEDS ORDERED: POTASSIUM CHLORIDE 20 MEQ in DEXTROSE 5% 1,000 ML IV SCH (10:30)
[2018-01-26] MEDS: POTASSIUM CHLORIDE 10% 40 MEQ/30 ML UDC PO SCH (12:10)
[2018-01-26 14:09] VITALS: BP 144/73
[2018-01-26] MEDS: NICOTINE 14MG/24 HR PATCH.TD24 TD SCH (16:02)
[2018-01-26 19:05] VITALS: BP 143/60
[2018-01-26] MEDS: hydrOXyzine 10MG TABLET PO SCH (20:27)
[2018-01-26] MEDS: VANCOMYCIN 1,200 MG in SODIUM CHLORIDE 0.9% 250 ML IV SCH (21:33)
[2018-01-27 00:31] VITALS: BP 149/64
[2018-01-27] MEDS: PIPERACILLIN/TAZO/PMX 3.375GM 50 ML IV SCH ×4 (01:18→18:38)
[2018-01-27 01:21] VITALS: BP 118/64
[2018-01-27] MEDS: DILTIAZEM 30 MG TABLET PO SCH ×3 (01:24→17:50)
[2018-01-27 05:36] LABS: CHLORIDE 109 mmol/L (98-107)
[2018-01-27 05:43] LABS: ANION GAP 4 mmol/L (5-15); CALCIUM 8.5 mg/dL (8.5-10.1); CREATININE 0.56 mg/dL (0.7-1.3)
[2018-01-27] MEDS: ALBUTEROL/IPRATROPIUM 2.5MG/0.5MG, 3 ML NPPB SCH ×4 (07:00→20:18)
[2018-01-27 07:40] LABS: MEAN CORPUSCULAR HGB CONC 34.1 g/dL (33.2-36.2); MEAN CORPUSCULAR VOLUME 105.5 fL (81-97); RED BLOOD COUNT 2.46 x10^6/uL (4.38-5.82); RED CELL DISTRIBUTION WIDTH 18.7 % (9.4-14.8)
[2018-01-27 07:41] LABS: MD YES; MEAN PLATELET VOLUME 10.4 fL (7.4-10.4); PLATELET COUNT 74 x10^3/uL (130-400)
[2018-01-27 07:47] LABS: EOS#(MANUAL) 0.45 x10^3/uL (0.0-0.4); EOS% (MANUAL) 4 % (1-7); LYMPHS% (MANUAL) 8 % (22-44)
[2018-01-27 07:50] LABS: METAMYELOCYTES# (MANUAL) 0.57 x10^3/uL (0-0); METAMYELOCYTES% (MANUAL) 5 % (0-1); MYELOCYTES# (MANUAL) 0.45 x10^3/uL (0-0); MYELOCYTES% (MANUAL) 4 % (0-0)
[2018-01-27 07:51] LABS: <PLATELET ESTIMATE> DECREASED
[2018-01-27 07:53] LABS: ANISOCYTOSIS 1+; LARGE PLATELETS 1+
[2018-01-27 07:54] LABS: TOXIC GRAN 1+
[2018-01-27 07:56] LABS: BAND#(MANUAL) 1.24 x10^3/uL; BANDS%(MANUAL) 11 % (0-7)
[2018-01-27 07:57] LABS: MONOS#(MANUAL) 1.58 x10^3/uL (0.3-2.7); MONOS% (MANUAL) 14 % (2-9); SEGS% (MANUAL) 54 % (42-75)
[2018-01-27] MEDS ORDERED: MAGNESIUM SULFATE 4 GM in SODIUM CHLORIDE 0.9% 100 ML IV ONE (08:00)
[2018-01-27 08:18] VITALS: BP 102/73
[2018-01-27] MEDS ORDERED: MAGNESIUM SULFATE PMX 4GM/100M 100 ML IVPB ONE (09:30)
[2018-01-27] MEDS: DOXYCYCLINE 100 MG in DEXTROSE 5% 250 ML IV SCH ×2 (10:01→21:31)
[2018-01-27] MEDS: DOCUSATE 50 MG/5 ML, 10ML UDC PO SCH ×2 (10:02→20:59)
[2018-01-27] MEDS: GABAPENTIN 100 MG CAPSULE PO SCH ×3 (10:02→21:00)
[2018-01-27] MEDS: FLUOXETINE HCL 20 MG CAPSULE PO SCH (10:02)
[2018-01-27] MEDS: Budesonide/Formoterol Fumarate (Symbicort 160-4.5 Mcg Inhaler IH SCH ×2 (10:03→21:00)
[2018-01-27] MEDS: SODIUM CHLORIDE FLUSH 10ML SYR IVF SCH ×2 (10:03→21:01)
[2018-01-27 14:25] VITALS: BP 102/65
[2018-01-27] MEDS: NICOTINE 14MG/24 HR PATCH.TD24 TD SCH (17:47)
[2018-01-27 20:00] VITALS: BP 124/66
[2018-01-27] MEDS: hydrOXyzine 10MG TABLET PO SCH (21:00)
[2018-01-27] MEDS: VANCOMYCIN 1,200 MG in SODIUM CHLORIDE 0.9% 250 ML IV SCH (21:01)
[2018-01-28] MEDS: PIPERACILLIN/TAZO/PMX 3.375GM 50 ML IV SCH ×4 (00:52→18:21)
[2018-01-28 01:12] VITALS: BP 98/56
[2018-01-28] MEDS: DILTIAZEM 30 MG TABLET PO SCH ×3 (01:17→18:18)
[2018-01-28 06:30] VITALS: BP 155/74
[2018-01-28] MEDS: ALBUTEROL/IPRATROPIUM 2.5MG/0.5MG, 3 ML NPPB SCH ×4 (06:30→20:15)
[2018-01-28 08:29] LABS: ANION GAP 4 mmol/L (5-15); CHLORIDE 105 mmol/L (98-107); CREATININE 0.56 mg/dL (0.7-1.3)
[2018-01-28 08:41] LABS: MEAN CORPUSCULAR HEMOGLOBIN 35.4 pg (27.5-34.5); MEAN CORPUSCULAR HGB CONC 33.6 g/dL (33.2-36.2); MEAN CORPUSCULAR VOLUME 105.4 fL (81-97); MEAN PLATELET VOLUME 11.1 fL (7.4-10.4); PLATELET COUNT 74 x10^3/uL (130-400); RED BLOOD COUNT 2.23 x10^6/uL (4.38-5.82); RED CELL DISTRIBUTION WIDTH 17.8 % (9.4-14.8)
[2018-01-28 08:56] LABS: MD YES
[2018-01-28 09:09] LABS: ANISOCYTOSIS 1+; BAND#(MANUAL) 0.16 x10^3/uL; BANDS%(MANUAL) 2 % (0-7); EOS#(MANUAL) 0.16 x10^3/uL (0.0-0.4); EOS% (MANUAL) 2 % (1-7); LYMPH#(MANUAL) 0.82 x10^3/uL (1-3.4); LYMPHS% (MANUAL) 10 % (22-44); METAMYELOCYTES# (MANUAL) 0.25 x10^3/uL (0-0); METAMYELOCYTES% (MANUAL) 3 % (0-1); MONOS#(MANUAL) 1.31 x10^3/uL (0.3-2.7); MONOS% (MANUAL) 16 % (2-9); MYELOCYTES# (MANUAL) 0.08 x10^3/uL (0-0); MYELOCYTES% (MANUAL) 1 % (0-0); NRBC % (MANUAL) 1 % (0-1); SEG#(MANUAL) 5.41 x10^3/uL (1.8-6.8); SEGS% (MANUAL) 66 % (42-75)
[2018-01-28 09:10] LABS: <PLATELET ESTIMATE> DECREASED
[2018-01-28 09:11] LABS: LARGE PLATELETS 1+
[2018-01-28] MEDS ORDERED: VANCOMYCIN 1,400 MG in SODIUM CHLORIDE 0.9% 250 ML IV SCH ×2 (09:30→15:00)
[2018-01-28] MEDS: DOCUSATE 50 MG/5 ML, 10ML UDC PO SCH ×2 (09:49→21:36)
[2018-01-28] MEDS: FLUOXETINE HCL 20 MG CAPSULE PO SCH (09:51)
[2018-01-28] MEDS: SODIUM CHLORIDE FLUSH 10ML SYR IVF SCH ×2 (09:51→21:37)
[2018-01-28] MEDS: GABAPENTIN 100 MG CAPSULE PO SCH ×3 (09:51→21:37)
[2018-01-28] MEDS: Budesonide/Formoterol Fumarate (Symbicort 160-4.5 Mcg Inhaler IH SCH ×2 (09:51→21:36)
[2018-01-28] MEDS: DOXYCYCLINE 100 MG in DEXTROSE 5% 250 ML IV SCH ×2 (09:52→21:36)
[2018-01-28 12:25] VITALS: BP 140/55
[2018-01-28] MEDS: NICOTINE 14MG/24 HR PATCH.TD24 TD SCH (16:53)
[2018-01-28 20:28] VITALS: BP 154/92
[2018-01-28] MEDS: hydrOXyzine 10MG TABLET PO SCH (21:37)
[2018-01-29] VITALS: BP 121/54
[2018-01-29] MEDS: PIPERACILLIN/TAZO/PMX 3.375GM 50 ML IV SCH ×3 (00:08→12:15)
[2018-01-29 00:20] LABS: ANION GAP 7 mmol/L (5-15); CALCIUM 8.1 mg/dL (8.5-10.1); CHLORIDE 105 mmol/L (98-107); CREATININE 0.65 mg/dL (0.7-1.3)
[2018-01-29 00:28] VITALS: BP 131/75
[2018-01-29] MEDS: DILTIAZEM 30 MG TABLET PO SCH ×2 (00:58→08:23)
[2018-01-29] MEDS ORDERED: POTASSIUM CHLORIDE 20 MEQ TAB.ER.PRT PO ONE ×2 (01:00→08:30)
[2018-01-29] MEDS: ALBUTEROL/IPRATROPIUM 2.5MG/0.5MG, 3 ML NPPB SCH ×3 (07:00→14:42)
[2018-01-29 07:57] VITALS: BP 101/51
[2018-01-29] MEDS: DOXYCYCLINE 100 MG in DEXTROSE 5% 250 ML IV SCH (08:22)
[2018-01-29] MEDS: DOCUSATE 50 MG/5 ML, 10ML UDC PO SCH (08:23)
[2018-01-29] MEDS: SODIUM CHLORIDE FLUSH 10ML SYR IVF SCH (08:23)
[2018-01-29] MEDS: FLUOXETINE HCL 20 MG CAPSULE PO SCH (08:23)
[2018-01-29] MEDS: GABAPENTIN 100 MG CAPSULE PO SCH (08:24)
[2018-01-29] MEDS: Budesonide/Formoterol Fumarate (Symbicort 160-4.5 Mcg Inhaler IH SCH (08:35)
[2018-01-29 08:40] LABS: MEAN CORPUSCULAR HEMOGLOBIN 35.4 pg (27.5-34.5); MEAN CORPUSCULAR HGB CONC 33.5 g/dL (33.2-36.2); MEAN CORPUSCULAR VOLUME 105.6 fL (81-97); MEAN PLATELET VOLUME 10.4 fL (7.4-10.4); PLATELET COUNT 84 x10^3/uL (130-400); RED BLOOD COUNT 2.27 x10^6/uL (4.38-5.82); RED CELL DISTRIBUTION WIDTH 18.4 % (9.4-14.8)
[2018-01-29 08:51] LABS: ANION GAP 6 mmol/L (5-15); CHLORIDE 105 mmol/L (98-107)
[2018-01-29 08:55] LABS: CREATININE 0.68 mg/dL (0.7-1.3)
[2018-01-29 09:14] LABS: MD YES
[2018-01-29 09:19] LABS: BAND#(MANUAL) 0.07 x10^3/uL; BANDS%(MANUAL) 1 % (0-7); EOS#(MANUAL) 0.15 x10^3/uL (0.0-0.4); EOS% (MANUAL) 2 % (1-7); LYMPH#(MANUAL) 1.83 x10^3/uL (1-3.4); LYMPHS% (MANUAL) 25 % (22-44); MONOS#(MANUAL) 1.68 x10^3/uL (0.3-2.7); MONOS% (MANUAL) 23 % (2-9); SEG#(MANUAL) 3.58 x10^3/uL (1.8-6.8); SEGS% (MANUAL) 49 % (42-75)
[2018-01-29 09:21] LABS: <PLATELET ESTIMATE> DECREASED; ANISOCYTOSIS 1+; LARGE PLATELETS 1+
[2018-01-29] MEDS ORDERED: DOXY100V9 IV (09:27)
[2018-01-29] MEDS ORDERED: PIPE3.375 IV (09:27)
[2018-01-29] MEDS ORDERED: VANCOMYCIN IV (09:28)
[2018-01-29 14:18] VITALS: BP 111/63
== END 2018-01-29 17:44 | DRG 853 ==
LOC: ED 14:29 → EDIP 15:07 → 4EST 15:39
PROVIDERS: ADMIT Internal Medicine; ATTEND Internal Medicine
PROC: 0W9B3ZZ Drainage of Left Pleural Cavity, Percutaneous Approach (ICD-10-PCS; 2018-01-20)
PROC: 0T9B70Z Drainage of Bladder with Drainage Device, Via Natural or Artificial Opening (ICD-10-PCS; 2018-01-21)
PROC: 0SRS0J9 Replacement of Left Hip Joint, Femoral Surface with Synthetic Substitute, Cemented, Open Approach (ICD-10-PCS; principal; 2018-01-22 14:00)
PROC: 30233N1 Transfusion of Nonautologous Red Blood Cells into Peripheral Vein, Percutaneous Approach (ICD-10-PCS; 2018-01-25)
DX: A41.9 Sepsis, unspecified organism (principal); S72.002A Fracture of unspecified part of neck of left femur, initial encounter for closed fracture; J96.21 Acute and chronic respiratory failure with hypoxia; J15.9 Unspecified bacterial pneumonia; N17.9 Acute kidney failure, unspecified; D62 Acute posthemorrhagic anemia; J44.0 Chronic obstructive pulmonary disease with (acute) lower respiratory infection; J90 Pleural effusion, not elsewhere classified; F17.200 Nicotine dependence, unspecified, uncomplicated; W07.XXXA Fall from chair, initial encounter; D69.59 Other secondary thrombocytopenia; E83.42 Hypomagnesemia; E87.6 Hypokalemia; G62.9 Polyneuropathy, unspecified; I11.0 Hypertensive heart disease with heart failure; I48.0 Paroxysmal atrial fibrillation; R91.1 Solitary pulmonary nodule; R16.0 Hepatomegaly, not elsewhere classified; I50.9 Heart failure, unspecified; K74.60 Unspecified cirrhosis of liver; R13.10 Dysphagia, unspecified; Z66 Do not resuscitate; Z80.6 Family history of leukemia; Z95.0 Presence of cardiac pacemaker; Y93.89 Activity, other specified; Y92.89 Other specified places as the place of occurrence of the external cause; Y99.8 Other external cause status
CPT/HCPCS: 32555; 36415; 70450; 71045; 71260; 74176; 74177; 74230; 76700; 76770; 80048; 80053; 80074; 80162; 80202; 80307; 81001; 82040; 82042; 82105; 82140; 82533; 82550; 82945; 82962; 82977; 83540; 83550; 83605; 83615; 83735; 83880; 83986; 84100; 84145; 84157; 84443; 84484; 85014; 85018; 85025; 85610; 85730; 86738; 86850; 86900; 86923; 87040; 87070; 87075; 87081; 87205; 87254; 88112; 88305; 89051; 93005; 93306; 94640; 96361; 96365; 96368; C1713; J0690; J1650; J1885; J2250; J2543; J2704; J2710; J3010; J3370; J3480; J3490; J7060; J7070; J7620; P9047; Q9967; C1762; C1776; J1160; J1720; J1940; J2370; J3475; J7030; J7040; J7050; P9016